=== PATIENT | female | born 1980 | race Caucasian/White ===

== ENCOUNTER 2016-12-24 12:14 | Emergency (ER) | payer BC, OTHER ==
[~2016-12-24] VITALS: Wt 71.0 kg
--- NOTE | 2016-12-24 13:59 | ERD ---
ER Documentation Chief Complaint Date/Time DATE: 12/24/16 TIME: 13:56 Chief Complaint PELVIC PAIN X 3 DAYS HPI Patient is a 36-year-old male who presents to the ED with left-sided pelvic pain and dysuria 2 days. She states that she has had this pelvic pain in the past and it comes and goes. She says it is not associated with her periods. Denies abnormal vaginal discharge. Denies vaginal bleeding. Denies abdominal pain, nausea, vomiting or diarrhea or constipation. Last bowel movement was today. She also complains of mild back pain. Denies fever or chills. States that she is sexually active and uses protection. No history of STDs. ROS All systems reviewed and are negative except as per history of present illness. Medications Home Meds Active Scripts Phenazopyridine Hcl* (Pyridium*) 100 Mg Tab, 100 MG PO TID Y for URINARY PAIN, # 8 TAB Prov:DARWIN YUEN PA-C 12/24/16 Nitrofurantoin Monohyd Macrocr* (Macrobid*) 100 Mg Capsr, 100 MG PO BID for 7 Days, CAP Prov:DARWIN YUEN PA-C 12/24/16 Allergies Allergies: Coded Allergies: No Known Allergy (Unverified , 02/10/13) PMhx/Soc History of Surgery: Yes (OVARIAN TUMOUR REMOVAL ) Anesthesia Reaction: No Hx Alcohol Use: Yes (socially) Hx Substance Use: No Hx Tobacco Use: No Physical Exam Vitals Vital Signs Date Time Temp Pulse Resp B/P Pulse Ox O2 Delivery O2 Flow Rate FiO2 12/24/16 12:21 98.2 78 18 136/67 99 Physical Exam GENERAL: Well-developed, well-nourished female. Appears in no acute distress. NECK: Supple. No lymphadenopathy or thyromegaly. No meningismus. negative kernig. negative brudinski. LUNG: Clear to auscultation bilaterally. No rhonchi, wheezing, rales or coarse breath sounds. HEART: Regular rate and rhythm. No murmurs, rubs or gallops. ABDOMEN: No scars, ecchymosis or rashes noted. Soft, nontender, and nondistended. Positive bowel sounds in all four quadrants. No rebound tenderness , no guarding. (-) McBurneys point tenderness. No CVA tenderness. BACK: No midline tenderness. Extremities: Equal pulses bilaterally. No peripheral clubbing, cyanosis or edema. No unilateral leg swelling. NEUROLOGIC: Alert and oriented. Moving all four extremities. 5/5 strength in all extremities. Normal speech. Steady gait. SKIN: Normal color. Warm and dry. No rashes or lesions. Capillary refill < 2 seconds Results 24 hrs Laboratory Tests Test 12/24/16 14:04 Bedside Urine pH (LAB) 5.5 Bedside Urine Protein (LAB) Negative Bedside Urine Glucose (UA) Negative Bedside Urine Ketones (LAB) Negative Bedside Urine Blood Negative Bedside Urine Nitrite (LAB) Negative Bedside Urine Leukocyte Esterase (L Trace Procedures/MDM ER COURSE: I kept the patient and/or family informed of laboratory and diagnostic imaging results throughout the emergency room course. imaging studies [place] [id number] Radiology Main Line: [phone] DIAGNOSTIC IMAGING REPORT Patient: JOY ESPINOZA : 1980 Age: 36 Sex: F MR #: [id number] DOS: 12/24/16 [facility] Ordering MD: DARWIN YUEN PA-C Location: [facility] Room/Bed: PROCEDURE: US Pelvis. CLINICAL INDICATION: Pelvic pain. TECHNIQUE: The pelvis was evaluated with transabdominal sonography in the axial and sagittal planes. COMPARISON: No prior study is available for comparison. FINDINGS: Uterus: 8.0 x 3.7 x 6.0 cm. Endometrium: 5.1 mm. Right ovary: 2.6 x 2.3 x 2.5 cm. Left ovary: 4.5 x 2.3 x 2.7 cm. Uterine masses: None. Ovarian masses: None. Color Doppler and pulsed Doppler sonography demonstrate normal flow to the ovaries. Other pelvic masses: None. Free fluid: None. IMPRESSION: 1. Normal pelvic ultrasound. RPTAT: QQ .Kota Mayers MD, MD Date Time Electronically viewed and signed by .Kota Mayers MD, on 12/24/2016 15:13 .R/ CC: DARWIN YUEN PA-C MEDICAL DECISION MAKING: This is a 36-year-old female who presents with left-sided pelvic pain and dysuria and suprapubic tenderness 2 days.. Vital signs were reviewed. Patient is afebrile. Patient is not hypoxic. Patient is not toxic or ill-appearing. Patient likely has cystitis. Her urine dip shows trace leukocytes with no nitrites or hematuria. Her ultrasound is read by radiologist is unremarkable. Low suspicion for ovarian torsion, PID, tuboovarian abscess, ectopic , bowel obstruction, pyelonephritis, UTI, appendicitis, cervicitis, septic , molar , HELLP syndrome, preeclampsia, eclampsia, placenta previa, placenta abruptia. DISCHARGE: At this time, patient is stable for discharge and outpatient management with no new complaints during the ER course. Patient was sent home with Macrobid, Pyridium and a copy of her imaging studies.. Patient will be discharged home with instructions to recheck for new or worsening symptoms such as fever, nausea , weakness, LOC and to follow up with primary care in the next 1-2 days. Patient was advised to return to the ER for any new or worsening symptoms. Plan was discussed and patient and/or family understands and agrees. Home instructions were given. Departure Diagnosis: Primary Impression: Dysuria Condition: Stable DARWIN YUEN PA-C Dec 24, 2016 13:59
[2016-12-24 14:04] LABS: URINE BLOOD (Dip) POC Negative (NEGATIVE)
--- NOTE | 2016-12-24 15:14 | RADRPT ---
PROCEDURE: US Pelvis. CLINICAL INDICATION: Pelvic pain. TECHNIQUE: The pelvis was evaluated with transabdominal sonography in the axial and sagittal plane s. COMPARISON: No prior study is available for comparison. FINDINGS: Uterus: 8.0 x 3.7 x 6.0 cm. Endometrium: 5.1 mm. Right ovary: 2.6 x 2.3 x 2.5 cm. Left ovary: 4.5 x 2.3 x 2.7 cm. Uterine masses: None. Ovarian masses: None. Color Doppler and pulsed Doppler sonography demonstrate normal flow to the ova roger. Other pelvic masses: None. Free fluid: None. IMPRESSION: 1. Normal pelvic ultrasound. RPTAT: QQ .Kota Mayers MD, MD Date Time Electronically viewed and signed by .Kota Mayers MD, on 12/24/2016 15:13 .R/
[2016-12-24] MEDS ORDERED: NITR-58 PO (15:23)
[2016-12-24] MEDS ORDERED: PHEN-537 PO (15:23)
== END 2016-12-24 15:36 | disposition home or self-care (01) ==
LOC: FTE 12:14
DX: R30.0 Dysuria (principal)
CPT/HCPCS: 76856; 81003; Z7502